=== PATIENT | female | born 1945 | race Caucasian/White ===

== ENCOUNTER 2016-08-30 06:57 | Inpatient (IN) | payer MEDICARE ==
[2016-08-30 09:56] LABS: Hematocrit 38 % (35-47); Hemoglobin 12.7 g/dl (12.0-16.0); Mean Corpuscular HGB Conc 33 g/dl (31-36); Mean Corpuscular Hemoglobin 30 pg (27-31); Mean Corpuscular Volume 89 fL (80-97); Mean Platelet Volume 8 um3 (7.4-10.4); Red Cell Distribution Width 14 % (10.5-15); White Blood Count 5.3 10^3/ul (3.5-10.8)
[2016-08-30] MEDS ORDERED: Dofetilide CAP* 500 MCG PO SCH (10:00)
[2016-08-30 11:00] LABS: BUN/Creatinine Ratio 22.6 (8-20); Calcium 9.2 mg/dL (8.6-10.3); EGFR Non-African American 59.1 (>60); Potassium 4.3 mmol/L (3.5-5.0)
[2016-08-30] MEDS ORDERED: Metformin ER (NF) 750 MG TAB.ER PO SCH (17:00)
[2016-08-30] MEDS ORDERED: Warfarin TAB(*) 7.5 MG PO SCH (17:00)
[2016-08-30] MEDS: Atorvastatin* 20 MG TAB PO SCH (17:11)
[2016-08-30] MEDS: METFORMIN 750 MG PO SCH (17:11)
[2016-08-30] MEDS: Dofetilide CAP* 250 MCG PO SCH (21:49)
[2016-08-31] MEDS: Levothyroxine TAB* 25 MCG TAB PO SCH (06:27)
[2016-08-31] MEDS: Levothyroxine TAB* 150 MCG TAB PO SCH (06:27)
[2016-08-31] MEDS ORDERED: Levothyroxine TAB* 150 MCG TAB PO SCH (09:00)
[2016-08-31 10:01] LABS: BUN/Creatinine Ratio 23.3 (8-20); Calcium 9.4 mg/dL (8.6-10.3); EGFR African American 83.2 (>60); EGFR Non-African American 64.7 (>60); Potassium 4.1 mmol/L (3.5-5.0)
[2016-08-31] MEDS: Omeprazole CAP* 20 MG PO SCH (10:20)
[2016-08-31] MEDS: Magnesium Oxide TAB* 400 MG PO SCH (10:20)
[2016-08-31] MEDS: Cholecalciferol TAB* 1000 UNITS PO SCH (10:20)
[2016-08-31] MEDS: Ferrous Sulfate TAB* 325 MG PO SCH (10:20)
[2016-08-31] MEDS: Dofetilide CAP* 250 MCG PO SCH ×2 (10:20→21:01)
[2016-08-31 10:36] LABS: Magnesium 1.7 mg/dL (1.9-2.7)
[2016-08-31] MEDS: Acetaminophen TAB* 325 MG PO PRN ×2 (14:57→18:45)
[2016-08-31] MEDS ORDERED: Warfarin TAB(*) 5 MG PO SCH (17:00)
[2016-08-31] MEDS: Atorvastatin* 20 MG TAB PO SCH (17:28)
[2016-08-31] MEDS: METFORMIN 750 MG PO SCH (17:29)
[2016-09-01] MEDS: Levothyroxine TAB* 150 MCG TAB PO SCH (05:55)
[2016-09-01] MEDS: Levothyroxine TAB* 25 MCG TAB PO SCH (05:55)
[2016-09-01 05:59] LABS: BUN/Creatinine Ratio 21.3 (8-20); EGFR Non-African American 62.2 (>60); Magnesium 1.6 mg/dL (1.9-2.7); Potassium 4.1 mmol/L (3.5-5.0)
[2016-09-01] MEDS: Magnesium Oxide TAB* 400 MG PO SCH (08:17)
[2016-09-01] MEDS: Omeprazole CAP* 20 MG PO SCH (08:17)
[2016-09-01] MEDS: Dofetilide CAP* 250 MCG PO SCH (08:17)
[2016-09-01] MEDS: Ferrous Sulfate TAB* 325 MG PO SCH (08:17)
[2016-09-01] MEDS: Cholecalciferol TAB* 1000 UNITS PO SCH (08:17)
[2016-09-01 12:03] VITALS: BP 153/85
--- NOTE | 2016-09-10 01:09 | DS ---
DISCHARGE SUMMARY: DATE OF ADMISSION: 08/30/16 DATE OF DISCHARGE: 09/01/16 HISTORY OF PRESENT ILLNESS: Ms. Hammond is a 71-year-old patient followed by Dr. Bright with a history of paroxysmal atrial fibrillation. The patient had been on sotalol, but was having frequent episodes of atrial flutter with rapid ventricular rate and the decision was made to take her off sotalol and replace with Tikosyn requiring admission. The patient's Tikosyn loading was unremarkable. She had no complaints. She had no sustained dysrhythmias and tolerated the medication well. PAST MEDICAL HISTORY: The patient has a past medical history of diabetes type 2 , paroxysmal atrial fibrillation, coronary artery disease with non-Q-wave myocardial infarction in 2014 (2014 presented with Takotsubo syndrome, 25% occlusion of LAD and RCA), Graves' disease, status post thyroid radiation, on thyroid replacement, Schatzki's ring, rosacea, peptic ulcer disease. PAST SURGICAL HISTORY: Includes hysterectomy for uterine fibroids, ALAN and BSO. SOCIAL HISTORY: The patient is a former smoker, distant. PHYSICAL EXAMINATION: On the day of discharge, the patient felt well, was free of complaints. Vital Signs: The patient is 5 feet 9 inches, weighs 208 pounds with a BMI of 31. Blood pressure was 153/85, pulse was 77. Lungs were clear with good effort. No wheezing, rales, or rhonchi. Coronary: S1, S2. Regular. Abdomen: Soft. ALLERGIES: Include CODEINE and PENICILLIN. MEDICATIONS AT DISCHARGE: Included: 1. Dofetilide 250 mcg b.i.d. 2. Omeprazole 20 mg a day. 3. Metformin 1500 mg at dinner. 4. Simvastatin 40 mg a day. 5. Levothyroxine 175 mcg a day. 6. Coumadin. 7. Magnesium oxide 400 mg a day. 8. Iron sulfate 325 mg a day. 9. MultiVites. 10. Vitamin D 2000 units daily. 11. Tylenol p.r.n. pain. Discontinued medications were p.r.n. doxycycline (secondary to potential interaction of QT prolongation with Tikosyn). STUDIES: ECG the morning of discharge, 09/01/16, showed normal sinus rhythm at 57 beats a minute, QRS axis of 0, normal AV and IV conduction times with a corrected QT interval of 467 milliseconds. LABORATORY DATA: From 08/30/16, white count 5.3, hemoglobin 12.7. INR on the day of discharge, 09/01/16, was 2.8 and her lytes on 09/01/16, sodium 132, potassium 4.1, chloride 101, bicarb 25, BUN 19, creatinine 0.89, glucose 136, magnesium 1.6. FOLLOWUP: The patient will follow up with Dr. Bright in the office in the next 1 to 3 months and p.r.n. CC: Dr. Alexx Bright* [id number]/[facility] #: [id number] [facility] SYSTEMBurak
== END 2016-09-01 12:48 | disposition home or self-care (01) | DRG 310 ==
LOC: MEDTELE 09:00
PROVIDERS: ADMIT Specialist; ATTEND Specialist
DX: I48.91 Unspecified atrial fibrillation (principal); Z88.0 Allergy status to penicillin; Z88.5 Allergy status to narcotic agent
CPT/HCPCS: 36415; 80048; 83735; 85025; 85610; 93005; A9270-GY